=== PATIENT | male | born 2000 | race Caucasian/White ===

== ENCOUNTER 2021-03-04 02:40 | Inpatient (IN) ==
[2021-03-04 04:02] LABS: Bilirubin,Urine Negative (Negative); Blood,Urine Negative (Negative); Clarity,Urine Clear (Clear); Color,Urine Light-Yellow (Yellow); Glucose,Urine (UA) Normal (Normal); Ketones,Urine Negative (Negative); Leukocyte Esterase,Urine Negative (Negative); Nitrite,Urine Negative (Negative); PH,Urine 5.5 pH Units (5.0-8.0); Protein,Urine Negative (Neg-Trace); Specific Gravity,Urine 1.014 (1.010-1.025); Urobilinogen,Urine Normal (Normal)
[2021-03-04 04:05] LABS: Basophils % 0.4 %; Eosinophils # 0.1 K/mcL (0.0-0.6); Eosinophils % 0.9 %; Hematocrit 41.8 % (37.5-50.1); Hemoglobin 14.6 g/dL (12.9-16.9); Immature Granulocytes % 0.4 % (0-4); Lymphocytes # 2.5 K/mcL (0.6-4.6); Lymphocytes % 31.1 %; Mean Corpuscular HGB Conc 34.9 g/dL (31.6-35.5); Mean Corpuscular Hemoglobin 30.9 pg (28.0-33.3); Mean Corpuscular Volume 88.6 fL (83.0-100.0); Mean Platelet Volume 9.9 fL (9.4-12.4); Monocytes # 0.3 K/mcL (0.0-1.3); Monocytes % 4.1 %; Neutrophils # 5.1 K/mcL (1.6-8.9); Platelet Count 267 K/mcL (140-400); Red Blood Count 4.72 M/mcL (4.19-5.50); Red Cell Distribution Width 11.9 % (11.5-14.5); Segmented Neutrophils % 63.1 %; White Blood Count 8.1 K/mcL (4.3-11.1)
[2021-03-04 04:10] LABS: Estimated Average Glucose 111 mg/dl; Hemoglobin A1C 5.5 %
[2021-03-04 04:14] LABS: Amphetamine Screen,Urine Negative ng/mL (Cutoff=1000); Barbiturate Screen,Urine Negative ng/mL (Cutoff=200); Benzodiazepines Screen,Urine Negative ng/mL (Cutoff=200); Cannabinoid Screen,Urine Negative ng/mL (Cutoff = 50); Cocaine Screen,Urine Negative ng/mL (Cutoff= 300); Opiate Screen,Urine Negative ng/mL (Cutoff=300); Phencyclidine Screen,Urine Negative ng/mL (Cutoff=25)
[2021-03-04 04:24] LABS: Acetaminophen < 10 mcg/mL (10-20); BUN/Creatinine Ratio 11 (6-26); Blood Urea Nitrogen 9 mg/dL (6-20); Carbon Dioxide 24 mEq/L (23-29); Chloride 108 mEq/L (98-107); Chol/HDL Ratio 2.9 (0-4.9); Cholesterol 138 mg/dL (< 200); Ethanol 95 mg/dL (Less than 10); Glucose 120 mg/dL (70-105); HDL Cholesterol 47 mg/dL (40-59); LDL Cholesterol,Calculated 77 mg/dL (< 100); Osmolality,Calculated 292 (280-300); Potassium 3.3 mEq/L (3.5-5.1); Salicylate < 2.5 mg/dL (15.0-30.0); Sodium 141 mEq/L (136-145); Triglycerides 68 mg/dL (< 150); eGFR For African Americans > 60 (> 60); eGFR For Non-African Americans > 60 (> 60)
[2021-03-04 10:04] LABS: Influenza A PCR Negative (Negative); Influenza B PCR Negative (Negative); Resp. Syncytial Virus PCR Negative (Negative)
[2021-03-04 10:22] LABS: SARS-CoV-2 by PCR (In House) Negative (Negative)
[2021-03-04] MEDS ORDERED: *HR* LORazepam 1 MG TABLET PO PRN (10:51)
[2021-03-04] MEDS ORDERED: Haloperidol Lactate 5 MG/ML VIAL IM PRN (10:51)
[2021-03-04] MEDS ORDERED: *HR* LORazepam 2 MG/ML VIAL IM PRN (10:51)
[2021-03-04] MEDS ORDERED: Mag Hydrox/Al Hydrox/Simeth 30 ML UDC PO PRN (10:51)
[2021-03-04] MEDS ORDERED: haloperidoL 5 MG TABLET PO PRN (10:51)
[2021-03-04] MEDS ORDERED: MOM Conc 10 ML UD.LIQ PO PRN (10:51)
[2021-03-04] MEDS ORDERED: Acetaminophen 325 MG TABLET PO PRN (10:51)
[2021-03-04] MEDS ORDERED: hydrOXYzine pamoate 25 MG CAPSULE PO PRN (10:51)
[2021-03-04] MEDS ORDERED: traZODone 50 MG TABLET PO PRN (10:51)
[2021-03-04] MEDS: hydrOXYzine pamoate 25 MG CAPSULE PO SCH (20:57)
[2021-03-05] MEDS: PARoxetine 20 MG TABLET PO SCH (08:42)
[2021-03-05] MEDS: hydrOXYzine pamoate 25 MG CAPSULE PO SCH ×3 (08:42→20:27)
[2021-03-05] MEDS: Vitamin B Complex/Vit C/Vit E 1 EACH TABLET PO SCH (08:43)
[2021-03-05] MEDS: Nicotine 2 MG GUM BC PRN (20:27)
[2021-03-06] MEDS: Nicotine 2 MG GUM BC PRN ×5 (07:42→20:23)
[2021-03-06] MEDS: Vitamin B Complex/Vit C/Vit E 1 EACH TABLET PO SCH (08:15)
[2021-03-06] MEDS: hydrOXYzine pamoate 25 MG CAPSULE PO SCH ×3 (08:15→20:22)
[2021-03-06] MEDS: PARoxetine 20 MG TABLET PO SCH (08:15)
[2021-03-07] MEDS: Nicotine 2 MG GUM BC PRN ×2 (09:18→11:07)
[2021-03-07] MEDS: PARoxetine 20 MG TABLET PO SCH (09:34)
[2021-03-07] MEDS: Vitamin B Complex/Vit C/Vit E 1 EACH TABLET PO SCH (09:35)
[2021-03-07] MEDS: hydrOXYzine pamoate 25 MG CAPSULE PO SCH (09:36)
[2021-03-07 11:01] VITALS: BP 110/78; PULSE 62; TEMP 97.3; O2SAT 100
== END 2021-03-07 12:30 | disposition home or self-care (01) | DRG 881 ==
LOC: EMEROOARM 02:40 → 1ANU 10:37
PROVIDERS: ADMIT Psychiatry & Neurology Forensic Psychiatry; ATTEND Psychiatry & Neurology Forensic Psychiatry